=== PATIENT | male | born 1975 | race Hispanic/Latino ===

== ENCOUNTER 2024-09-06 08:35 | Outpatient (CLI) | payer BC | END 2024-09-06 08:36 | disposition home or self-care (01) | LOC: CSHSLEEP 08:35 | PROVIDERS: ATTEND Family Medicine | DX: G47.33 Obstructive sleep apnea (adult) (pediatric) (principal); E66.9 Obesity, unspecified; Z68.37 Body mass index [BMI] 37.0-37.9, adult; R06.83 Snoring; I10 Essential (primary) hypertension | CPT/HCPCS: 95811 ==